=== PATIENT | male | born 1960 | race Caucasian/White ===

== ENCOUNTER 2019-08-09 06:07 | Emergency (ER) | payer OTHER ==
[2019-08-09] MEDS ORDERED: Nitroglycerin 0.4 MG TAB 1 EACH ONE (06:19)
[2019-08-09 06:40] LABS: #Eosinphils 0.1 thou/uL (0.0-0.7); #Lymphocytes 2.2 thou/uL (1.20-3.40); #Monocytes 0.5 thou/uL (0.11-0.59); #Neutrophils 3.4 thou/uL (1.40-6.50); %Basophils 0.1 % (0.0-1.0); %Eosinophils 1.5 % (0.0-10.0); %Lymphocytes 35.6 % (21.0-51.0); %Monocytes 8.7 % (0.0-10.0); %Neutrophils 54.1 % (42.0-75.0); Hemoglobin 16.2 g/dL (14.0-18.0); Mean Corpuscular HGB CONC 33.9 g/dL (32.0-36.0); Mean Corpuscular Hemoglobin 28.7 pg (27.0-31.0); Mean Corpuscular Volume 84.7 fL (78.0-98.0); Platelet Count 206 thou/uL (130-400); RBC Distribution Width 12.4 % (11.5-14.5); Red Blood Cell (RBC) Count 5.63 mill/uL (4.70-6.10); White Blood Cell (WBC) Count 6.3 thou/uL (4.8-10.8)
[2019-08-09] MEDS ORDERED: Morphine 4 MG/ML VIAL ONE (06:42)
[2019-08-09] MEDS ORDERED: Nitroglycerin 2% Ointment 1 INCH/1 GM Packet ONE (06:42)
[2019-08-09] MEDS ORDERED: Ondansetron PF 4 MG/2 ML Vial ONE (06:42)
[2019-08-09 07:05] LABS: ALT (SGPT) 26 U/L (8-55); AST (SGOT) 18 U/L (5-34); Albumin 3.9 g/dL (3.5-5.0); Alkaline Phosphatase 86 U/L (40-110); Anion Gap 15 mmol/L (10-20); BUN (Urea Nitrogen) 10 mg/dL (8.4-25.7); Bilirubin, Total 0.3 mg/dL (0.2-1.2); Calc. Creatinine Clearance 0 mL/min (70-130); Calcium 9.1 mg/dL (7.8-10.44); Carbon Dioxide 24 mmol/L (22-29); Chloride 101 mmol/L (98-107); Estimated GFR-MDRD 74; Globulin 3.2 g/dL (2.4-3.5); Glucose 310 mg/dL (70-105); Lipase 48 U/L (8-78); Potassium 3.8 mmol/L (3.5-5.1); Protein, Total 7.1 g/dL (6.0-8.3); Sodium 136 mmol/L (136-145)
--- NOTE | 2019-08-09 07:38 | RAD ---
Chest one view HISTORY: Chest pain. Hypertension. FINDINGS: No comparison. Cardiac silhouette is magnified by projection. Shallow inspiration accentuat es pulmonary markings that are upper limits of normal. Mediastinum is midline. No lobar consolidation or evidence of pneumothorax. surveillance monitor leads ove rlie the chest. IMPRESSION: Borderline pulmonary vascular congestion.
[2019-08-09 08:23] LABS: Troponin I Less than 0.010 ng/mL (< 0.028)
== END 2019-08-09 09:29 | disposition home or self-care (01) ==
LOC: ERS 06:07
DX: R07.89 Other chest pain (principal); I10 Essential (primary) hypertension; E11.9 Type 2 diabetes mellitus without complications; Z79.4 Long term (current) use of insulin
CPT/HCPCS: 36415; 71045; 80053; 82550; 83690; 84484; 85025; 85379; 93005; 96374; 96375; J2270; J2405